=== PATIENT | male | born 1985 | race African-American/Black ===

== ENCOUNTER 2023-12-06 03:44 | Emergency (ER) | payer MEDICAID, OTHER ==
[~2023-12-06] VITALS: Ht 180.3 cm; Wt 69.0 kg
[2023-12-06] MEDS ORDERED: PANTOPRAZOLE 40 MG/10 ML VIAL INJ IV ONE (04:15)
[2023-12-06 05:14] LABS: Basophils # (auto) 0 10 ^3/uL (0-0.2); Basophils % (auto) 0.2 % (0.0-2.0); Eosinophils # (auto) 0 10 ^3/uL (0-0.8); Hematocrit 44.7 % (41.0-53.0); Hemoglobin 15.4 g/dL (13.5-17.5); Lymphocytes # (auto) 1.5 10 ^3/uL (0.4-5.4); Lymphocytes % (auto) 11.2 % (10.0-50.0); Mean Corpuscular Hemoglobin 31.3 pg (28.0-32.0); Mean Corpuscular Hgb Conc. 34.4 g/dL (32.0-36.0); Mean Corpuscular Volume 91.1 fL (80.0-100.0); Monocytes # (auto) 0.8 10 ^3/uL (0-1.3); Monocytes % (auto) 6.3 % (0.0-12.0); Neutrophils % (auto) 82.3 % (37.0-80.0); Platelet Count (auto) 384 10^3/uL (140-450); Red Blood Cells 4.91 10^6/uL (4.5-5.90); Red Cell Distribution Width 14.6 % (11.8-14.3); White Blood Cell 13.4 10^3/uL (4.4-10.8)
[2023-12-06 05:21] LABS: Alanine Aminotransferase 40 U/L (7-40); Alkaline Phosphatase 102 U/L (46-116); Anion Gap 22 (5-15); Aspartate Aminotransferase 42 U/L (13-40); BUN/Creatinine Ratio 12.8 (10.0-20.0); Bilirubin, Total 0.7 mg/dL (0.2-1.0); Blood Urea Nitrogen 23 mg/dL (9-23); Calcium 11.6 mg/dL (8.7-10.4); Carbon Dioxide 19 mmol/L (20-30); Chloride 103 mmol/L (98-107); Glucose 110 mg/dL (74-106); Lipase 30 U/L (12-53); Potassium 3.6 mmol/L (3.5-5.1); Sodium 144 mmol/L (136-145)
[2023-12-06 05:31] LABS: Albumin 5.9 g/dL (3.2-4.8)
[2023-12-06] MEDS: SODIUM CHLORIDE 0.9% 1,000 ML IVB ONE (05:42)
[2023-12-06] MEDS: PROCHLORPERAZINE EDISYLATE 5 MG/ML 2ML VIAL IV ONE (05:43)
[2023-12-06] MEDS: MORPHINE SULFATE 4 MG/ML SYR/VIAL IV ONE (05:43)
[2023-12-06] MEDS: PANTOPRAZOLE 40 MG/10 ML VIAL INJ IV ONE (05:43)
[2023-12-06] MEDS ORDERED: ZOFR4T PO (07:04)
[2023-12-06] MEDS: SODIUM CHLORIDE 0.9% 1,000 ML IV ONE (07:20)
[2023-12-06 07:21] VITALS: BP 120/70; PULSE 82; RESP 18; TEMP 98.7; O2SAT 99
== END 2023-12-06 08:24 | disposition home or self-care (01) ==
LOC: ER 03:44
DX: F12.188 Cannabis abuse with other cannabis-induced disorder (principal); R10.12 Left upper quadrant pain; D72.829 Elevated white blood cell count, unspecified; F17.210 Nicotine dependence, cigarettes, uncomplicated; F12.10 Cannabis abuse, uncomplicated
CPT/HCPCS: 36415; 74176; 80053; 80320; 83690; 85025; 96361; 96374; 96375; 99285; J0780; J2270; J2470; J7030